=== PATIENT | female | born 1940 | race Caucasian/White ===

== ENCOUNTER 2019-03-29 08:12 | Emergency (ER) | payer MEDICARE, OTHER ==
[2019-03-29 08:30] VITALS: BP 151/46
[2019-03-29] MEDS ORDERED: Ondansetron 4 MG/2 ML SDV IVPUSH ONE (08:36)
[2019-03-29] MEDS ORDERED: Lactated Ringers 1,000 ML IV ONE (08:36)
--- NOTE | 2019-03-29 08:47 | EDM.PDOC ---
ED HPI GENERAL MEDICAL PROBLEM - General Chief Complaint: General Stated Complaint: VOMITING CANCER PATIENT HAD CHIMO Time Seen by Provider: 03/29/19 08:30 Source of Information: Reports: Patient, Old Records, RN History Limitations: Reports: No Limitations - History of Present Illness INITIAL COMMENTS - FREE TEXT/NARRATIVE: 78 yo female presents with her for nausea and vomiting since yesterday. She has had normal BM's. No fever or abdominal pain. No distention of her abdomen. No hematemesis. Is not dizzy with standing. Has not noticed the color of her urine. Has no antiemetics at home. Has a hx of breast CA with mets to her liver. Onset: Gradual Onset Date: 03/28/19 Onset Time: 08:00 Duration: Day(s): (1+), Constant Quality: Reports: Other (no pain) Severity: Severe Improves with: Reports: None Worsens with: Reports: Other (putting anything in her mouth) Context: Reports: Other (see HPI) Associated Symptoms: Reports: Nausea/Vomiting. Denies: Fever/Chills Treatments FUNDER: Reports: Other (see below) (none) Abdominal Pain Score (Numeric/FACES): 3 - Related Data Allergies Allergy/AdvReac Type Severity Reaction Status Date / Time No Known Allergies Allergy Verified 05/07/15 08:58 Home Meds: Home Meds Aspirin [Halfprin] 81 mg PO BEDTIME 02/13/15 [History] Cholecalciferol (Vitamin D3) [Vitamin D3] 1,000 unit PO DAILY 02/13/15 [History] Levothyroxine [Synthroid] 112 mcg PO DAILY 02/13/15 [History] Potassium Chloride 20 meq PO BID 02/13/15 [History] Tolterodine [Detrol] 2 mg PO DAILY tablet 02/28/15 [Rx] atorvaSTATin [Lipitor] 20 mg PO BEDTIME tab 02/28/15 [Rx] Calcium Carb/Vitamin D3/Vit K1 [Calcium + Vit D & K Chew] 1 tab CHEW DAILY 05/06 [History] Prochlorperazine Maleate [Compazine] 10 mg PO Q6H PRN 05/06/15 [History] amLODIPine [Norvasc] 5 mg PO BEDTIME 05/07/15 [History] Palbociclib [Ibrance] 125 mg PO ASDIRECTED 03/29/19 [History] Triamcinolone Acetonide [Kenalog 0.1% Crm] 1 applic TOP BID 03/29/19 [History] Past Medical History - Past Health History Medical/Surgical History: Denies Medical/Surgical History Musculoskeletal History: Reports: Back Pain, Chronic, Other (See Below) Other Musculoskeletal History: cancer metastisis Oncologic (Cancer) History: Reports: Breast 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 Denies: Abdominal Pain, Black Stool, Bloody Stool, Constipation, Diarrhea, Distension, Hematemesis, Hematochezia, Melena : Reports: No Symptoms Musculoskeletal: Reports: No Symptoms Skin: Reports: No Symptoms Neurological: Reports: No Symptoms Psychiatric: Reports: No Symptoms ED EXAM, GENERAL - Physical Exam Exam: See Below Exam Limited By: No Limitations General Appearance: Alert, WD/WN, No Apparent Distress Eye Exam: Bilateral Eye: Normal Inspection Ears: Normal External Exam, Normal Canal, Hearing Grossly Normal Ear Exam: Bilateral Ear: Auricle Normal, Canal Normal Nose: Normal Inspection, Normal Mucosa, No Blood Throat/Mouth: Normal Inspection, Normal Lips, Normal Oropharynx, Normal Voice, No Airway Compromise Head: Atraumatic, Normocephalic Neck: Normal Inspection Respiratory/Chest: No Respiratory Distress, Lungs Clear, Normal Breath Sounds, No Accessory Muscle Use Cardiovascular: Regular Rate, Rhythm, No Edema GI/Abdominal: Normal Bowel Sounds, Soft, Non-Tender, No Distention Back Exam: Normal Inspection. No: CVA Tenderness (R), CVA Tenderness (L) Extremities: Normal Inspection, Normal Range of Motion, Non-Tender, No Pedal Edema Neurological: Alert, Oriented, CN II-XII Intact, Normal Cognition, No Motor/ Sensory Deficits Psychiatric: Normal Affect, Normal Mood Skin Exam: Warm, Dry, Intact, Normal Color, No Rash Course - Vital Signs Text/Narrative:: Able to keep apple juice down after Zofran IV. Last Recorded V/S: Last Vital Signs Temp 36.6 C 03/29/19 08:31 Pulse 65 03/29/19 08:31 Resp 16 03/29/19 08:31 BP 151/46 H 03/29/19 08:31 Pulse Ox 99 03/29/19 08:31 - Orders/Labs/Meds Labs: Laboratory Tests 03/29/19 Range/Units 08:48 Sodium 141 (140-148) mmol/L Potassium 3.2 L (3.6-5.2) mmol/L Chloride 102 (100-108) mmol/L Carbon Dioxide 28 (21-32) mmol/L Anion Gap 14.2 H (5.0-14.0) mmol/L BUN 23 H (7-18) mg/dL Creatinine 1.5 H D (0.6-1.0) mg/dL Est Cr Clr Drug Dosing 27.36 mL/min Estimated GFR (MDRD) 33 L (>60) Glucose 131 H (74-106) mg/dL Calcium 10.5 H D (8.5-10.1) mg/dL Meds: Medications Discontinued Medications Generic Name Dose Route Start Last Admin Trade Name Freq PRN Reason Stop Dose Admin Lactated Ringer's 1,000 mls @ 1,000 mls/hr 03/29/19 08:36 03/29/19 08:47 Ringers, Lactated IV 03/29/19 09:35 1,000 mls/hr BOLUS ONE Administration Ondansetron HCl 4 mg 03/29/19 08:36 03/29/19 08:47 Zofran IVPUSH 03/29/19 08:37 4 mg ONETIME ONE Administration Departure - Departure Time of Disposition: 09:52 Disposition: Home, Self-Care 01 Condition: Fair Clinical Impression: Nausea and vomiting Qualifiers: Vomiting type: unspecified Vomiting Intractability: non-intractable Qualified Code(s): R11.2 - Nausea with vomiting, unspecified - Discharge Information *PRESCRIPTION DRUG MONITORING PROGRAM REVIEWED*: No *COPY OF PRESCRIPTION DRUG MONITORING REPORT IN PATIENT VITALY: No Instructions: Nausea and Vomiting, Adult Referrals: Lauren Lawler PA [Primary Care Provider] - Forms: ED Department Discharge Additional Instructions: Take Zofran every 6 hrs as needed for nausea. F/U with your provider within the next week. Diet as tolerated. Try to eat/drink items rich in potassium due to your borderline low level discovered today.
== END 2019-03-29 10:08 | disposition home or self-care (01) ==
LOC: JP.ED 08:12
DX: R11.2 Nausea with vomiting, unspecified (principal); Z79.82 Long term (current) use of aspirin; Z79.899 Other long term (current) drug therapy
CPT/HCPCS: 36415; 80048; 96361; 96374; 99284; J2405; J7120

== ENCOUNTER 2019-03-30 18:11 | Emergency (ER) | payer MEDICARE, OTHER ==
[2019-03-30] MEDS ORDERED: Sodium Chloride 0.9% 10 ML Syringe FLUSH PRN (18:39)
[2019-03-30] MEDS ORDERED: Metoclopramide 10 MG/2 ML SDV IVPUSH ONE (18:40)
[2019-03-30] MEDS ORDERED: Glycerin Adult 2.1 GM Supp RECTAL ONE (19:04)
--- NOTE | 2019-03-30 19:10 | EDM.PDOC ---
ED HPI GENERAL MEDICAL PROBLEM - General Chief Complaint: Abdominal Pain Stated Complaint: NAUSEA,PAIN/CANCER PATIENT Time Seen by Provider: 03/30/19 18:50 Source of Information: Reports: Patient, Old Records, RN History Limitations: Reports: No Limitations - History of Present Illness INITIAL COMMENTS - FREE TEXT/NARRATIVE: 78 yo female presents with intermittent crampy abdominal pain associated with nausea and one emesis. Has a pHx of constipation and usually gets relief with MOM, did not try this today. Also, has a pHx of metastatic breast CA with mets to her liver and bone. Denies any melena or hematochezia. No fever. Last BM was about 5+ days ago. Is on Ibrance for her CA and has had leukopenia in the past from this, but today's WBC ct is lower than usual. Onset: Gradual Onset Date: 03/29/19 Duration: Day(s): (1+), Getting Worse Location: Reports: Abdomen Quality: Reports: Other (crampy) Severity: Moderate Improves with: Reports: None Worsens with: Reports: Other (time) Context: Reports: Other (See HPI) Associated Symptoms: Reports: Nausea/Vomiting. Denies: Fever/Chills Treatments [employer]: Reports: Other (see below) (none) abdominal Pain Score (Numeric/FACES): 7 - Related Data Allergies Allergy/AdvReac Type Severity Reaction Status Date / Time No Known Allergies Allergy Verified 03/30/19 18:40 Home Meds: Home Meds Aspirin [Halfprin] 81 mg PO BEDTIME 02/13/15 [History] Cholecalciferol (Vitamin D3) [Vitamin D3] 1,000 unit PO DAILY 02/13/15 [History] Levothyroxine [Synthroid] 112 mcg PO DAILY 02/13/15 [History] Potassium Chloride 20 meq PO BID 02/13/15 [History] Tolterodine [Detrol] 2 mg PO DAILY tablet 02/28/15 [Rx] atorvaSTATin [Lipitor] 20 mg PO BEDTIME tab 02/28/15 [Rx] Calcium Carb/Vitamin D3/Vit K1 [Calcium + Vit D & K Chew] 1 tab CHEW DAILY 05/06 [History] Prochlorperazine Maleate [Compazine] 10 mg PO Q6H PRN 05/06/15 [History] amLODIPine [Norvasc] 5 mg PO BEDTIME 05/07/15 [History] Ondansetron [Zofran ODT] 4 mg PO Q6H PRN #14 tab.dis 03/29/19 [Rx] Palbociclib [Ibrance] 125 mg PO ASDIRECTED 03/29/19 [History] Triamcinolone Acetonide [Kenalog 0.1% Crm] 1 applic TOP BID 03/29/19 [History] Past Medical History - Past Health History Medical/Surgical History: Denies Medical/Surgical History Musculoskeletal History: Reports: Back Pain, Chronic, Other (See Below) Other Musculoskeletal History: cancer metastisis Oncologic (Cancer) History: Reports: Breast 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 Denies: Black Stool, Bloody Stool, Diarrhea, Distension, Flatus, Hematemesis, Hematochezia, Melena : Reports: No Symptoms Musculoskeletal: Reports: No Symptoms Skin: Reports: No Symptoms Neurological: Reports: No Symptoms Psychiatric: Reports: No Symptoms ED EXAM, GI/ABD - Physical Exam Exam: See Below Exam Limited By: No Limitations General Appearance: Alert, WD/WN, No Apparent Distress Eyes: Bilateral: Normal Appearance Ears: Normal External Exam, Normal Canal, Hearing Grossly Normal Nose: Normal Inspection, No Blood Throat/Mouth: Normal Inspection, Normal Lips, Normal Oropharynx, Normal Voice, No Airway Compromise Head: Atraumatic, Normocephalic Neck: Normal Inspection, Non-Tender Respiratory/Chest: No Respiratory Distress, Lungs Clear, Normal Breath Sounds, No Accessory Muscle Use Cardiovascular: Regular Rate, Rhythm, No Edema GI/Abdominal Exam: Normal Bowel Sounds, Soft, Distended (mildly), Tender (mild, diffuse). No: Non-Tender, No Distention Extremities: Normal Inspection, Normal Range of Motion, Non-Tender Neurological: Alert, Oriented, CN II-XII Intact, Normal Cognition, No Motor/ Sensory Deficits Psychiatric: Normal Affect, Normal Mood Skin Exam: Warm, Dry, Intact, Normal Color, No Rash Course - Vital Signs Last Recorded V/S: Last Vital Signs Temp 36.5 C 03/30/19 20:22 Pulse 74 03/30/19 22:13 Resp 16 03/30/19 22:13 BP 131/54 L 03/30/19 22:13 Pulse Ox 98 03/30/19 22:13 - Orders/Labs/Meds Orders: Active Orders 24 hr Category Date Time Status Enema [RC] ASDIRECTED Care 03/30/19 20:21 Active Enema [RC] ASDIRECTED Care 03/30/19 21:55 Active NS + KCl 20mEq/L [Normal Saline with 20 mEq KCl] 1,000 Med 03/30/19 19:30 Active ml IV ASDIRECTED Sodium Chloride 0.9% [Saline Flush] Med 03/30/19 18:39 Active 10 ml FLUSH ASDIRECTED PRN Saline Lock Insert [OM.PC] Routine Oth 03/30/19 18:39 Ordered Medication Orders Potassium Chloride/Sodium Chloride (Normal Saline With 20 Meq Kcl) 1,000 mls @ 500 mls/hr IV ASDIRECTED XOCHILT Last Admin: 03/30/19 19:31 Dose: 500 mls/hr Sodium Chloride (Saline Flush) 10 ml FLUSH ASDIRECTED PRN PRN Reason: Keep Vein Open Last Admin: 03/30/19 19:09 Dose: 10 ml Labs: Laboratory Tests 03/30/19 03/30/19 03/30/19 Range/Units 18:40 18:40 20:16 WBC 1.5 L (4.5-11.0) K/uL RBC 3.36 (3.30-5.50) M/uL Hgb 12.4 (12.0-15.0) g/dL Hct 37.0 (36.0-48.0) % MCV 110 H (80-98) fL MCH 37 H (27-31) pg MCHC 34 (32-36) % Plt Count 175 (150-400) K/uL Sodium 133 L (140-148) mmol/L Potassium 3.2 L (3.6-5.2) mmol/L Chloride 93 L (100-108) mmol/L Carbon Dioxide 26 (21-32) mmol/L Anion Gap 17.2 H (5.0-14.0) mmol/L BUN 34 H (7-18) mg/dL Creatinine 1.5 H (0.6-1.0) mg/dL Est Cr Clr Drug Dosing 27.36 mL/min Estimated GFR (MDRD) 33 L (>60) Glucose 145 H (74-106) mg/dL Calcium 10.0 (8.5-10.1) mg/dL Magnesium 1.8 (1.8-2.4) mg/dL Meds: Medications Generic Name Dose Route Start Last Admin Trade Name Freq PRN Reason Stop Dose Admin Potassium Chloride/Sodium Chloride 1,000 mls @ 500 mls/hr 03/30/19 19:30 19:31 Normal Saline With 20 Meq Kcl IV 500 mls/hr ASDIRECTED XOCHILT Administration Sodium Chloride 10 ml 03/30/19 18:39 03/30/19 19:09 Saline Flush FLUSH 10 ml ASDIRECTED PRN Administration Keep Vein Open Discontinued Medications Generic Name Dose Route Start Last Admin Trade Name Neelq PRN Reason Stop Dose Admin Glycerin 1 supp 03/30/19 19:04 03/30/19 19:09 Sani-Supp Adult RECTAL 03/30/19 19:05 1 supp ONETIME ONE Administration Metoclopramide HCl 10 mg 03/30/19 18:40 03/30/19 19:09 Reglan IVPUSH 03/30/19 18:41 10 mg ONETIME ONE Administration Polyethylene Glycol 17 gm 03/30/19 20:21 03/30/19 20:50 Miralax PO 03/30/19 20:22 17 gm ONETIME ONE Administration Potassium Chloride 20 meq 03/30/19 20:15 03/30/19 20:50 Potassium Chloride PO 03/30/19 20:16 20 meq ONETIME ONE Administration - Radiology Interpretation Free Text/Narrative:: Abdominal [id number] stool noted. - Re-Assessments/Exams Free Text/Narrative Re-Assessment/Exam: 03/30/19 20:48 No results with glycerin supp, Fleets enema given. Had a hard piece of stool pass about the size of a plum. 03/30/19 21:33 Departure - Departure Time of Disposition: 22:50 Disposition: Home, Self-Care 01 Clinical Impression: Hypokalemia Nausea and vomiting Qualifiers: Vomiting type: unspecified Vomiting Intractability: non-intractable Qualified Code(s): R11.2 - Nausea with vomiting, unspecified Leukopenia Qualifiers: Leukopenia type: neutropenia Neutropenia type: secondary to cancer chemotherapy Qualified Code(s): D70.1 - Agranulocytosis secondary to cancer chemotherapy; T45.1X5A - Adverse effect of antineoplastic and immunosuppressive drugs, initial encounter Constipation Qualifiers: Constipation type: slow transit constipation Qualified Code(s): K59.01 - Slow transit constipation - Discharge Information *PRESCRIPTION DRUG MONITORING PROGRAM REVIEWED*: No *COPY OF PRESCRIPTION DRUG MONITORING REPORT IN PATIENT VITALY: No Referrals: Lauren Lawler PA [Primary Care Provider] - Forms: ED Department Discharge Additional Instructions: Wash your hands often with soap and water. Stay away from people to reduce your risk of infection. Return to the ER if you develop a fever. Take Miralax as needed to reduce your risk of recurrent constipation. Eat more fresh fruit and yogurt to help build up your potassium level. Recheck in the clinic with your doctor early next week, call for an appt. - My Orders Last 24 Hours: My Active Orders 03/30/19 18:39 Sodium Chloride 0.9% [Saline Flush] 10 ml FLUSH ASDIRECTED PRN Saline Lock Insert [OM.PC] Routine 03/30/19 19:30 NS + KCl 20mEq/L [Normal Saline with 20 mEq KCl] 1,000 ml IV ASDIRECTED 03/30/19 20:21 Enema [RC] ASDIRECTED 03/30/19 21:55 Enema [RC] ASDIRECTED - Assessment/Plan Last 24 Hours: My Active Orders 03/30/19 18:39 Sodium Chloride 0.9% [Saline Flush] 10 ml FLUSH ASDIRECTED PRN Saline Lock Insert [OM.PC] Routine 03/30/19 19:30 NS + KCl 20mEq/L [Normal Saline with 20 mEq KCl] 1,000 ml IV ASDIRECTED 03/30/19 20:21 Enema [RC] ASDIRECTED 03/30/19 21:55 Enema [RC] ASDIRECTED
[2019-03-30] MEDS ORDERED: NS + KCl 20mEq/L 1,000 ML IV SCH (19:30)
[2019-03-30] MEDS ORDERED: Potassium Chloride 10 MEQ Cap.ER PO ONE (20:15)
[2019-03-30] MEDS ORDERED: Polyethylene Glycol 3350 Powder 17 GM Packet PO ONE (20:21)
--- NOTE | 2019-03-30 22:11 | CRLCR ---
INDICATION: Abdominal cramping. COMPARISON: None. FINDINGS/IMPRESSION: Abdomen, 2 supine views. Nonspecific abnormal bowel gas pattern with moderate gaseous distention of small bowel segments in the left mid abdomen and moderate amounts of gas and stool throughout the colon. Ileus or early/partial small bowel obstruction are considerations. Small calcifications in the low pelvis likely represent phleboliths. Included bones show nonspecific diffuse osseous sclerosis. Consider CT of the abdomen and pelvis for further evaluation. Dictated by Jim Jeong MD @ 03/30/2019 10:08:00 PM Dictated by: Jim Jeong MD @ 03/30/2019 22:08:25 (Electronically Signed)
[2019-03-30 22:15] VITALS: BP 131/54
== END 2019-03-30 23:15 | disposition home or self-care (01) ==
LOC: JP.ED 18:11
DX: K59.01 Slow transit constipation (principal); D70.1 Agranulocytosis secondary to cancer chemotherapy; T45.1X5A Adverse effect of antineoplastic and immunosuppressive drugs, initial encounter; E87.6 Hypokalemia; C80.1 Malignant (primary) neoplasm, unspecified; C78.7 Secondary malignant neoplasm of liver and intrahepatic bile duct; C79.81 Secondary malignant neoplasm of breast; C79.51 Secondary malignant neoplasm of bone; Z79.82 Long term (current) use of aspirin; Z79.899 Other long term (current) drug therapy
CPT/HCPCS: 36415; 74018; 80048; 83735; 85027; 96361; 96374; 99284; A9270; J2765; J3480